=== PATIENT | female | born 1980 | race African-American/Black ===

== ENCOUNTER 2025-02-28 17:25 | Emergency (ER) | payer MEDICAID ==
[~2025-02-28] VITALS: Ht 167.6 cm; Wt 91.0 kg
[2025-02-28 17:37] VITALS: O2SAT 100
[2025-02-28] MEDS ORDERED: LORAZEPAM 2MG/ML INJ IV ONE (18:00)
[2025-02-28 18:11] LABS: BASOPHILS % 1.2 % (0.0-2.0); EOSINOPHILS % 1.4 % (0.0-5.0); HEMATOCRIT. 36.7 % (36.0-48.0); HEMOGLOBIN. 12.5 g/dL (12.0-16.0); LYMPHOCYTES % 20.7 % (20.0-50.0); MEAN CORPUSCULAR HEMOGLOBIN 28.3 pg (28.0-32.0); MEAN CORPUSCULAR VOLUME 83.3 fL (81.0-99.0); MEAN PLATELET VOLUME 8.8 fl (7.4-10.4); MONOCYTES % 4.5 % (2.0-8.0); NEUTROPHILS % 72.2 % (40.0-76.0); PLATELET 270 x1000/uL (130-400); RED BLOOD CELL COUNT 4.41 mill/uL (4.2-5.4); RED CELL DISTRIBUTION WIDTH 15.8 % (11.6-14.6); WHITE BLOOD COUNT 9.6 x1000/uL (4.5-11.0)
[2025-02-28 18:25] LABS: CHLORIDE 101 mEq/L (98-107); POTASSIUM 3.5 mEq/L (3.5-5.1); SODIUM 132 mEq/L (136-145)
[2025-02-28 18:26] LABS: CARBON DIOXIDE 20 mEq/L (21-32)
[2025-02-28 18:27] LABS: CALCIUM 9.1 mg/dL (8.7-10.4)
[2025-02-28 18:31] LABS: PROTHROMBIN TIME 10.3 sec (9.6-11.0); UREA NITROGEN BLOOD 8 mg/dL (9-23)
[2025-02-28] MEDS: LORAZEPAM 2MG/ML UD SYRINGE IV SCH (18:40)
[2025-02-28 18:45] VITALS: TEMP 37.1
[2025-02-28 18:46] LABS: GLUCOSE 414 mg/dL (70-105); TROPONIN I HIGH SENSITIVITY < 4 ng/L (3.0-34)
[2025-02-28] MEDS: INSULIN REGULAR (HUMULIN R) 1000UNITS/10ML VIAL SUBCUT ONE (19:13)
[2025-02-28 19:40] LABS: CLARITY URINE CLEAR (CLEAR); COLOR URINE YELLOW (YELLOW); GLUCOSE URINE 3+ (NEGATIVE); KETONES URINE 3+ (NEGATIVE); LEUKOCYTE ESTERASE URINE NEGATIVE (NEGATIVE); NITRITE URINE NEGATIVE (NEGATIVE); OCCULT BLOOD URINE NEGATIVE (NEGATIVE); PH URINE 6.5 (4.5-8.0); PROTEIN URINE NEGATIVE (NEGATIVE)
[2025-02-28 19:58] LABS: BACTERIA URINE 1+; RBC URINE 0-2 /hpf (0-2); SQUAMOUS EPITHELIAL CELL URINE 1+ /lpf (RARE/1+); WBC URINE 0-2 /hpf (0-2)
[2025-02-28] MEDS ORDERED: METF-414 MT (20:19)
[2025-02-28 20:44] VITALS: BP 140/87; PULSE 115; RESP 18; O2SAT 95
== END 2025-02-28 20:50 | disposition home or self-care (01) ==
LOC: ER 17:25
DX: F41.9 Anxiety disorder, unspecified (principal); R73.9 Hyperglycemia, unspecified
CPT/HCPCS: 99284; 96374; 71045; 80048; 81003; 85025; 85610; 84484; 36415; 96372; J2060; J1815